=== PATIENT | female | born 1955 | race Caucasian/White ===

== ENCOUNTER 2017-11-16 04:55 | Inpatient (IN) | payer MEDICARE, OTHER ==
--- NOTE | 2017-11-16 06:28 | ED ---
Dizziness HPI - General Chief Complaint: Neuro Symptoms/Deficit Stated Complaint: Dizziness Time Seen by Provider: 11/16/17 05:06 Source: patient Mode of arrival: EMS Limitations: physical limitation - History of Present Illness Initial Comments: This patient is 62-year-old woman transferred here from [facility], where she had gone tonight after the acute onset of severe vertigo. The patient states she had gone to bed in her usual state of health and then woke up to use the bathroom. She states that when she got out of bed in a hurry, she developed intense dizziness. Further questioning reveals that his vertigo sensation, she feels like her body is moving out of control and she is not able stop unless she lies extremely still. She has not found other relieving symptoms. It is worsened with movement. MD Complaint: dizziness, difficulty walking -: hour(s) Timing: sudden onset Description: sense of movement, difficulty walking History of Same: No History of Trauma: No Severity: severe Improves With: remaining still Worsens With: movement Associated Symptoms: denies other symptoms - Related Data Allergies Allergy/AdvReac Type Severity Reaction Status Date / Time cefaclor [From Ceclor] Allergy Rash/Hives Verified 11/16/17 05:03 sulfamethoxazole Allergy Rash/Hives Verified 11/16/17 05:03 [From Bactrim] trimethoprim [From Bactrim] Allergy Rash/Hives Verified 11/16/17 05:03 epinephrine AdvReac Rapid Verified 11/16/17 05:03 Heart Rate Review of Systems ROS Statement: Those systems with pertinent positive or pertinent negative responses have been documented in the HPI. ROS Other: All systems not noted in ROS Statement are negative. Constitutional: Denies: fever, chills, weakness Eyes: Denies: vision change Respiratory: Denies: cough, dyspnea Cardiovascular: Denies: chest pain, palpitations, edema, syncope Gastrointestinal: Reports: nausea, vomiting. Denies: abdominal pain Genitourinary: Denies: dysuria, hematuria Musculoskeletal: Denies: back pain Skin: Denies: rash Neurological: Reports: vertigo. Denies: headache, weakness, numbness Past Medical History Past Medical History: COPD, Hyperlipidemia, Hypertension History of Any Multi-Drug Resistant Organisms: None Reported Past Surgical History: Adenoidectomy, Appendectomy, Ear Surgery, Hysterectomy, Tonsillectomy Past Psychological History: Anxiety, Panic Disorder Smoking Status: Former smoker Past Alcohol Use History: None Reported Past Drug Use History: None Reported General Exam Limitations: physical limitation General appearance: alert, in no apparent distress, obese Head exam: Present: atraumatic, normocephalic Eye exam: Present: normal appearance, nystagmus. Absent: scleral icterus, conjunctival injection ENT exam: Present: normal oropharynx Neck exam: Present: normal inspection, full ROM Respiratory exam: Present: normal lung sounds bilaterally. Absent: respiratory distress, wheezes, rales, rhonchi, stridor Cardiovascular Exam: Present: regular rate, normal rhythm, normal heart sounds. Absent: systolic murmur, diastolic murmur, rubs, gallop GI/Abdominal exam: Present: soft. Absent: distended, tenderness, guarding, rebound, mass Extremities exam: Present: normal inspection, normal capillary refill. Absent: pedal edema, calf tenderness Neurological exam: Present: alert, oriented X3, CN II-XII intact. Absent: motor sensory deficit Skin exam: Present: warm, dry, intact, normal color. Absent: rash Course Vital Signs 11/16/17 11/16/17 04:59 05:49 Temperature 99.3 F Pulse Rate 97 84 Respiratory 19 18 Rate Blood Pressure 172/74 136/68 O2 Sat by Pulse 93 L 96 Oximetry EKG Findings - EKG Results: EKG: interpreted by ERMD, sinus rhythm (With PACs, rate approximately 84 bpm), normal axis, normal QRS, normal ST/T Disposition Clinical Impression: Vertigo Disposition: ADMITTED IP TO THIS HOSP Condition: Fair Is patient prescribed a controlled substance at d/c from ED?: No Referrals: Jose Sheikh MD [Primary Care Provider] - 1-2 days
[2017-11-16] MEDS: MECLIZINE 12.5 MG TAB PO SCH ×4 (06:50→23:40)
[2017-11-16] MEDS: SODIUM CHLORIDE 0.9% 1,000 ML IV SCH (06:51)
[2017-11-16 08:11] VITALS: BMI 46.5
[2017-11-16] MEDS: DOCUSATE 100 MG CAP PO SCH ×3 (12:15→23:40)
[2017-11-16] MEDS: FAMOTIDINE 20 MG TAB PO SCH ×2 (12:15→20:08)
[2017-11-16] MEDS ORDERED: IPRATROPIUM-ALBUTEROL 3 ML NEB INHALATION PRN (14:43)
--- NOTE | 2017-11-16 14:46 | P.HPIM ---
History of Present Illness H&P Date: 11/16/17 Chief Complaint: Dizziness Patient is a 60-year-old male with a known history of COPD-recently started on home oxygen, hypertension, hyperlipidemia and borderline diabetes was initially presented to [facility] with complaints of dizziness and vertigo since yesterday. Patient says that all the symptoms started when she is woke up to use the bathroom. She was having severe dizziness especially when she tries to get up and moves her head. Patient is unable to walk steadily. Patient presented to ER for further evaluation. CT head at [facility] was negative as per patient. Patient was transferred to [facility] for evaluation by neurology. Otherwise patient denied any chest pain or shortness of breath. Patient does have some nausea. No vomiting. No headache. No chest pain or shortness of breath no fever no chills. No nausea vomiting or abdominal pain. No recent cough or sputum production no recent illnesses or sick contacts. Laboratory data from [facility] was reviewed. Review of Systems Constitutional: Patient denies any fever or chills . No generalized weakness or weight loss. Abdomen: Patient denied nausea vomiting and diarrhea and abdominal pain. Cardiovascular: Patient denies any chest pain or short of breath no palpitations. Respiratory: patient denied any cough is from production. No shortness of breath Neurologic: Patient denied any numbness or tingling headache. Patient does have dizziness Musculoskeletal: Patient denies any complaints of joint swelling or deformity. Skin: Negative Psychiatric: Negative Endocrine: No heat or cold intolerance. No recent weight gain. Genitourinary: No dysuria or hematuria. All other 14 point ROS negative except the above Past Medical History Past Medical History: COPD, Hyperlipidemia, Hypertension Additional Past Medical History / Comment(s): boarder line diabetic History of Any Multi-Drug Resistant Organisms: None Reported Past Surgical History: Adenoidectomy, Appendectomy, Ear Surgery, Hysterectomy, Tonsillectomy Past Psychological History: Anxiety, Panic Disorder Smoking Status: Former smoker Past Alcohol Use History: None Reported Past Drug Use History: None Reported Medications and Allergies Home Medications Medication Instructions Recorded Confirmed Type Aspirin EC [Ecotrin Low Dose] 81 mg PO DAILY 11/16/17 11/16/17 History Cholecalciferol [Vitamin D3] 5,000 unit PO DAILY 11/16/17 11/16/17 History LORazepam [Ativan] 0.5 mg PO QAM 11/16/17 11/16/17 History Lisinopril 30 mg PO DAILY 11/16/17 11/16/17 History Simvastatin 40 mg PO HS 11/16/17 11/16/17 History Venlafaxine HCl ER [Effexor Xr] 150 mg PO DAILY 11/16/17 11/16/17 History busPIRone HCl [Buspar] 5 mg PO TID 11/16/17 11/16/17 History Allergies Allergy/AdvReac Type Severity Reaction Status Date / Time cefaclor [From Ceclor] Allergy Rash/Hives Verified 11/16/17 06:44 sulfamethoxazole Allergy Rash/Hives Verified 11/16/17 06:44 [From Bactrim] trimethoprim [From Bactrim] Allergy Rash/Hives Verified 11/16/17 06:44 epinephrine AdvReac Rapid Verified 11/16/17 06:44 Heart Rate Physical Exam Vitals: Vital Signs Temp Pulse Pulse Resp BP BP Pulse Ox 11/16/17 12:00 70 16 11/16/17 11:31 98.2 F 70 16 92/51 96 11/16/17 08:00 72 16 11/16/17 07:30 98.1 F 72 16 118/73 100 11/16/17 06:52 97.4 F L 85 18 139/84 98 11/16/17 05:49 84 18 136/68 96 11/16/17 04:59 99.3 F 97 19 172/74 93 L Intake and Output 11/15/17 11/16/17 11/16/17 22:59 06:59 14:59 Intake Total 240 Balance 240 Intake: Oral 240 Other: Voiding Method Toilet Weight 98.883 kg 97.5 kg PHYSICAL EXAMINATION: Patient is lying in the bed comfortably, no acute distress, awake alert and oriented.. HEENT: Normocephalic. Neck is supple. Pupils reactive. Nostrils clear. Oral cavity is moist. Ears reveal no drainage. Neck reveals no JVD, carotid bruits, or thyromegaly. CHEST EXAMINATION: Trachea is central. Symmetrical expansion. Mild expiratory wheezing. Otherwise Lung haley clear to auscultation and percussion. CARDIAC: Normal S1, S2 with no gallops. No murmurs ABDOMEN: Soft. Bowel sounds normal. No organomegaly. No abdominal bruits. Extremities: reveal no edema. No clubbing or cyanosis Neurologically awake, alert, oriented x3 with well-coordinated movements. No focal deficits noted Skin: No rash or skin lesions. Psychiatric: Coperative. Nonsuicidal Musculoskeletal: No joint swelling or deformity. Normal range of motion. Thrombosis Risk Factor Assmnt - DVT/VTE Prophylaxis DVT/VTE Prophylaxis: Pharmacologic Prophylaxis ordered - Choose All That Apply Any of the Below Risk Factors Present?: Yes Each Factor Represents 1 point: Obesity (BMI >25) Other Risk Factors: Yes Each Risk Factor Represents 2 Points: Age 61-74 years Thrombosis Risk Factor Assessment Total Risk Factor Score: 3 Thrombosis Risk Factor Assessment Level: Moderate Risk Assessment and Plan Assessment: Dizziness likely due to benign positional vertigo COPD on home oxygen Hypertension Borderline diabetes Hyperlipidemia Morbid obesity BMI of 46.5 Anxiety and panic disorder History of smoking DVT prophylaxis with heparin subcu Plan: Patient be continued on meclizine when necessary. Neurology was consulted. We will continue the patient it is new and home medications will be started. Continue to follow closely. Further recommendations based on the clinical course. Time with Patient: Greater than 30
[2017-11-16] MEDS: HEPARIN SODIUM,PORCINE 5,000 UNIT/ML 1 ML VIAL SQ SCH ×2 (16:31→23:40)
[2017-11-16] MEDS: busPIRone HCl 5 MG TAB PO SCH ×2 (16:31→20:07)
[2017-11-16] MEDS ORDERED: ACETAMINOPHEN TAB 325 MG TAB PO PRN (20:03)
[2017-11-16] MEDS: ATORVASTATIN 20 MG TAB PO SCH (20:08)
--- NOTE | 2017-11-16 20:58 | P.CNNES ---
History of Present Illness Consult date: 11/16/17 History of Present Illness: The patient is a 62-year-old woman transferred from [facility] to [facility] with vertigo. The patient reports that she got up at 10 PM night from bed suddenly and developed vertigo. She began stumbling. She states she felt as if she was spinning. There is no visual changes. She has nausea but no vomiting. She reports that the vertigo is worse if she turns to the left. So the vertigo is brought on by standing or sitting and relieved by laying flat. She has balance disturbance chronically. She had this type of vertigo years ago. He has a history of pituitary tumor diagnosed 12-15 years ago. She sees a neurologist, Dr. BOLANOS, and she had MRI done last year. Also she had a CAT scan of the brain earlier this year which showed no change compared to recent CT of the brain done in the emergency room at [facility]. has not seen a neurosurgeon for several years. She was told to manage without surgery unless she becomes symptomatic. The patient denies any focal weakness numbness or visual changes. The patient lives alone and she states that the balance has been poor for over 3 months and she to the point where she stopped driving. Review of Systems Constitutional: Denies chills, Denies fever Eyes: denies blurred vision, denies pain Ears, nose, mouth and throat: Reports as per HPI Cardiovascular: Denies chest pain, Denies shortness of breath Respiratory: Denies cough Musculoskeletal: Reports as per HPI Neurological: Denies numbness, Denies weakness Psychiatric: Denies anxiety, Denies depression Past Medical History Past Medical History: COPD, Hyperlipidemia, Hypertension Additional Past Medical History / Comment(s): boarder line diabetic History of Any Multi-Drug Resistant Organisms: None Reported Past Surgical History: Adenoidectomy, Appendectomy, Ear Surgery, Hysterectomy, Tonsillectomy Past Psychological History: Anxiety, Panic Disorder Smoking Status: Former smoker Past Alcohol Use History: None Reported Past Drug Use History: None Reported Medications and Allergies Home Medications Medication Instructions Recorded Confirmed Type Aspirin EC [Ecotrin Low Dose] 81 mg PO DAILY 11/16/17 11/16/17 History Cholecalciferol [Vitamin D3] 5,000 unit PO DAILY 11/16/17 11/16/17 History LORazepam [Ativan] 0.5 mg PO QAM 11/16/17 11/16/17 History Lisinopril 30 mg PO DAILY 11/16/17 11/16/17 History Simvastatin 40 mg PO HS 11/16/17 11/16/17 History Venlafaxine HCl ER [Effexor Xr] 150 mg PO DAILY 11/16/17 11/16/17 History busPIRone HCl [Buspar] 5 mg PO TID 11/16/17 11/16/17 History Allergies Allergy/AdvReac Type Severity Reaction Status Date / Time cefaclor [From Ceclor] Allergy Rash/Hives Verified 11/16/17 06:44 sulfamethoxazole Allergy Rash/Hives Verified 11/16/17 06:44 [From Bactrim] trimethoprim [From Bactrim] Allergy Rash/Hives Verified 11/16/17 06:44 epinephrine AdvReac Rapid Verified 11/16/17 06:44 Heart Rate Physical Examination - Vital Signs Vital Signs: Vital Signs Temp Pulse Pulse Resp BP BP BP 11/16/17 20:00 16 11/16/17 19:05 98.3 F 82 16 11/16/17 16:00 98.1 F 75 16 118/72 116/73 11/16/17 15:56 70 16 11/16/17 12:00 70 16 11/16/17 11:31 98.2 F 70 16 11/16/17 08:00 72 16 11/16/17 07:30 98.1 F 72 16 11/16/17 06:52 97.4 F L 85 18 139/84 11/16/17 05:49 84 18 136/68 11/16/17 04:59 99.3 F 97 19 172/74 BP BP Pulse Ox 11/16/17 20:00 11/16/17 19:05 109/64 99 11/16/17 16:00 124/79 99 11/16/17 15:56 11/16/17 12:00 11/16/17 11:31 92/51 96 11/16/17 08:00 11/16/17 07:30 118/73 100 11/16/17 06:52 98 11/16/17 05:49 96 11/16/17 04:59 93 L Intake and Output 09/07/18 09/07/18 09/07/18 06:59 14:59 22:59 Intake Total 240 Balance 240 Intake: Oral 240 Other: Voiding Method Toilet Toilet # Voids 1 Weight 98.883 kg 97.5 kg - Constitutional General appearance: cooperative, obese - EENT EENT: PERRL, hearing intact, vision intact - Respiratory Respiratory: lungs clear - Cardiovascular Cardiovascular: regular rate, normal S1, normal S2 - Integumentary Integumentary: normal - Neurologic Neurologic examination mental status: Patient is awake alert and oriented. There was no a aphasia or dysarthria. Cranial nerve examination: PERRL, EOMI, VFF, V1/V2/V3 grossly intact, face symmetric, tongue midline Speech examination: intact Sensorimotor examination: intact Detailed motor examination: grossly full strength in all extremities Reflexes: 2+: knee - Psychiatric Psychiatric: mood/affect appropriate Assessment and Plan (1) Vertigo Current Visit: Yes Status: Acute SNOMED Code(s): 729664648 (2) History of pituitary tumor Current Visit: Yes Status: Acute SNOMED Code(s): 18152458451564 Plan: The patient is a 62-year-old woman with history of chronic problems with balance and recent exacerbation with acute vertigo beginning yesterday. He also has a history of pituitary tumor. Patient presented to the hospital at [facility] with severe vertigo. His vertigo is positional and associated with nausea. Her neurologic examination is nonfocal. The patient has a known pituitary tumor and CAT scan of the brain yesterday showed no change compared to CAT scan done in June 2017. Further evaluation is recommended with MRI of the brain. Also recommend MRA of the neck. Continue aspirin area and also recommend echocardiogram
[2017-11-17] MEDS: MECLIZINE 12.5 MG TAB PO SCH ×4 (06:24→23:15)
[2017-11-17] MEDS: SODIUM CHLORIDE 0.9% 1,000 ML IV SCH (06:24)
[2017-11-17 06:45] LABS: Cholesterol 132 mg/dL (<200); HDL Cholesterol 45 mg/dL (40-60); LDL Cholesterol,Calculated 69 mg/dL (0-99); Triglycerides 88 mg/dL (<150)
[2017-11-17] MEDS: FAMOTIDINE 20 MG TAB PO SCH ×2 (09:22→20:31)
[2017-11-17] MEDS: CHOLECALCIFEROL 1,000 UNIT TAB PO SCH (09:22)
[2017-11-17] MEDS: HEPARIN SODIUM,PORCINE 5,000 UNIT/ML 1 ML VIAL SQ SCH ×3 (09:22→23:15)
[2017-11-17] MEDS: busPIRone HCl 5 MG TAB PO SCH ×3 (09:22→20:31)
[2017-11-17] MEDS: ASPIRIN 81 MG PO SCH (09:22)
[2017-11-17] MEDS: DOCUSATE 100 MG CAP PO SCH ×3 (09:22→23:15)
[2017-11-17] MEDS: VENLAFAXINE HCL ER 150 MG CAP PO SCH (09:24)
--- NOTE | 2017-11-17 12:53 | ECHOF ---
Referral Reason:Vertigo MEASUREMENTS -------- HEIGHT: 149.9 cm WEIGHT: 97.1 kg BP: RVIDd: 2.2 cm (< 3.3) IVSd: 1.0 cm (0.6 - 1.1) LVIDd: 3.6 cm (3.9 - 5.3) LVPWd: 1.6 cm (0.6 - 1.1) IVSs: 1.8 cm LVIDs: 1.6 cm LVPWs: 1.6 cm Ao Diam: 3.1 cm (2.0 - 3.7) AV Cusp: 1.7 cm (1.5 - 2.6) LA Diam: 2.9 cm (2.7 - 3.8) MV EXCURSION: 13.666 mm (> 18.000) MV EF SLOPE: 107 mm/s (70 - 150) EPSS: 0.5 cm MV E Felipe: 0.69 m/s MV DecT: 272 ms MV A Felipe: 0.64 m/s MV E/A Ratio: 1.08 AR PHT: 412 ms RAP: 5.00 mmHg RVSP: 13.19 mmHg FINDINGS -------- Sinus rhythm. This was a technically difficult study with suboptimal views. The left ventricular size is normal. There is mild concentric left ventricular hypertrophy. Overa ll left ventricular systolic function is normal with, an EF between 55 - 60 %. The right ventricle is normal in size and function. The left atrium is normal in size. The right atrium is normal in size. The aortic valve is trileaflet and appears structurally normal. There is mild aortic regurgitation. The mitral valve leaflets are mildly thickened. There is trace to mild mitral regurgitation. Trace tricuspid regurgitation present. The right ventricular systolic pressure, as measured by Dopp ler, is 13.19mmHg. Pulmonic valve appears structurally normal. The aortic root size is normal. The pericardium is normal. CONCLUSIONS -------- 1. Sinus rhythm. 2. This was a technically difficult study with suboptimal views. 3. The left ventricular size is normal. 4. There is mild concentric left ventricular hypertrophy. 5. Overall left ventricular systolic function is normal with, an EF between 55 - 60 %. 6. The right ventricle is normal in size and function. 7. The left atrium is normal in size. 8. The right atrium is normal in size. 9. The aortic valve is trileaflet and appears structurally normal. 10. There is mild aortic regurgitation. 11. The mitral valve leaflets are mildly thickened. 12. There is trace to mild mitral regurgitation. 13. Trace tricuspid regurgitation present. 14. The right ventricular systolic pressure, as measured by Doppler, is 13.19mmHg. 15. Pulmonic valve appears structurally normal. 16. The aortic root size is normal. 17. The pericardium is normal. COLLAR POINTER: Carrie Wray RDCS
[2017-11-17 15:25] LABS: Basophils % (A) 1 %; Eosinophils # (A) 0.1 k/uL (0-0.7); Eosinophils % (A) 2 %; HCT 43.1 % (34.0-46.0); HGB 13.4 gm/dL (11.4-16.0); Hypochromasia Moderate; Lymphocytes # (A) 1.9 k/uL (1.0-4.8); Lymphocytes % (A) 27 %; MCH 31.4 pg (25.0-35.0); MCHC 31.2 g/dL (31.0-37.0); MCV 100.8 fL (80.0-100.0); Macrocytosis Slight; Mean Platelet Volume 7.5; Monocytes # (A) 0.5 k/uL (0-1.0); Monocytes % (A) 7 %; Neutrophils # (A) 4.3 k/uL (1.3-7.7); Neutrophils % (A) 62 %; Platelet Count 252 k/uL (150-450); RBC 4.28 m/uL (3.80-5.40); RDW 13.8 % (11.5-15.5)
[2017-11-17 15:28] LABS: Albumin 2.8 g/dL (3.5-5.0); Calcium 8.7 mg/dL (8.4-10.2); Potassium 4.4 mmol/L (3.5-5.1); Total Bilirubin 0.4 mg/dL (0.2-1.3); Total Protein 5.6 g/dL (6.3-8.2)
--- NOTE | 2017-11-17 15:57 | P.PN ---
Subjective Progress Note Date: 11/17/17 The patient is a 62-year-old woman who presented to the hospital with acute vertigo. She has a history of chronic vertigo but vertigo apparently got worse when she got up suddenly from bed on the day of admission. She states she continues to have vertigo if she sits up or stands. She is fine when she is lying down flat. She has a history of pituitary tumor. He had a CAT scan of the brain on admission which was unchanged compared to a previous CAT scan in June which showed a pituitary tumor. She is scheduled to have an MRI today. She has no other complaints such as visual changes or focal weakness or numbness. Objective - Vital Signs Vital signs: Vital Signs Temp 98.4 F 11/17/17 12:00 Pulse 73 11/17/17 12:00 Resp 16 11/17/17 12:00 BP 107/66 11/17/17 12:00 Pulse Ox 99 11/17/17 12:00 Intake & Output 11/16/17 11/17/17 11/17/17 18:59 06:59 18:59 Intake Total 240 Balance 240 Weight 97.5 kg Intake: Oral 240 Other: Voiding Method Toilet Toilet Toilet # Voids 1 1 1 - Constitutional General appearance: Present: obese - EENT Eyes: Present: EOMI, PERRLA ENT: Present: hearing grossly normal - Respiratory Respiratory: bilateral: CTA - Cardiovascular Rhythm: regular - Neurologic Neurologic Comment(s): Neurologic examination: Mental status: The patient was awake alert and oriented. There is no a aphasia or dysarthria. Neurologic: Present: CNII-XII intact - Musculoskeletal Musculoskeletal: Present: strength equal bilaterally - Labs CBC & Chem 7: 11/17/17 06:08 11/17/17 06:08 Labs: Abnormal Lab Results - Last 24 Hours (Table) 11/17/17 11/17/17 Range/Units 06:08 06:08 MCV 100.8 H (80.0-100.0) fL Carbon Dioxide 33 H (22-30) mmol/L BUN 24 H (7-17) mg/dL Glucose 109 H (74-99) mg/dL Total Protein 5.6 L (6.3-8.2) g/dL Albumin 2.8 L (3.5-5.0) g/dL Assessment and Plan (1) Vertigo Current Visit: Yes Status: Acute SNOMED Code(s): 011837407 (2) History of pituitary tumor Current Visit: Yes Status: Acute SNOMED Code(s): 11413309850201 Plan: The patient is a 62-year-old woman with history of chronic problems with balance and recent exacerbation with acute vertigo beginning yesterday. He also has a history of pituitary tumor. Patient presented to the hospital at [place] with severe vertigo. She she is scheduled for an MRI of the brain today which is pending. Commend continue aspirin daily and Antivert when necessary and if dizziness continues recommend ENT evaluation.
[2017-11-17 17:49] LABS: Appearance,Urine Cloudy (Clear); Bacteria,Urine Few /hpf; Bilirubin,Urine Negative (Negative); Blood,Urine Negative (Negative); Color,Urine Yellow; Glucose,Urine (UA) Trace (Negative); Ketones,Urine Negative (Negative); Leukocyte Esterase,Urine Negative (Negative); Mucus,Urine Rare /hpf; Nitrite,Urine Negative (Negative); Protein,Urine Trace (Negative); RBC,Urine 1 /hpf (0-5); Specific Gravity,Urine 1.031 (1.001-1.035); Squamous Epithelial Cell,Urine 6 /hpf (0-4); Urobilinogen,Urine <2.0 mg/dL (<2.0); WBC,Urine 4 /hpf (0-5)
--- NOTE | 2017-11-17 20:23 | PN ---
PROGRESS NOTE DATE OF SERVICE: 11/17/2017 This 62-year-old woman who was admitted with dizziness is being closely monitored. At this time MRI has been ordered by neurology. The patient also has COPD. The patient is still complaining of dizziness and a 2D echo with Doppler was read by cardiology and showed ejection fraction about 50-60%. There is no history of fever, rigors or chills. PHYSICAL EXAM: Alert and oriented x3. The pulse is 73, blood pressure 107/63, respirations 16, temperature 98.4, pulse ox 98% on 2 L. HEENT: Conjunctivae normal. Oral mucosa moist. NECK: No jugular venous distention. No lymph nodes. CARDIOVASCULAR: S1, S2 muffled. RESPIRATORY: Diminished breath sounds at the bases. No rhonchi. No crackles. ABDOMEN: Soft, nontender. No mass palpable. LEGS: No edema, no swelling. NERVOUS SYSTEM: Higher functions as mentioned. No focal deficits. LYMPHATICS: No lymph nodes in neck or axilla. SKIN: No ulcer, rash or bleeding. NERVOUS SYSTEM: Mild diffuse weakness. LABS: Triglycerides are within normal limits. ASSESSMENT: 1. Dizziness, possibly benign positional vertigo, rule out transient ischemic attack or stroke. 2. COPD on home O2. 3. Hypertension. 4. Borderline diabetes type 2. 5. Hyperlipidemia. 6. Morbid obesity, BMI of 46.5. 7. Anxiety and panic disorder. 8. History of smoking. RECOMMENDATIONS AND DISCUSSION: Recommend to continue current medication, monitor and symptomatic treatment. Otherwise at this time, I recommend MRI, repeat labs, neurology consultation, neurovascular evaluation. Also recommend PT OT evaluation. Prognosis guarded. Further recommendations. MMODL / IJN: [id number] /
[2017-11-17] MEDS: ATORVASTATIN 20 MG TAB PO SCH (20:31)
[2017-11-18] MEDS: SODIUM CHLORIDE 0.9% 1,000 ML IV SCH (06:00)
[2017-11-18] MEDS: MECLIZINE 12.5 MG TAB PO SCH ×4 (06:01→23:33)
--- NOTE | 2017-11-18 06:46 | MR ---
EXAMINATION TYPE: MR brain wo/w mra neck wo/wcon DATE OF EXAM: 11/17/2017 COMPARISON: Yes CT scan from [facility] dated 11/16/2017. HISTORY: Vertigo TECHNIQUE: Multiplanar, multisequence images of the brain and brainstem is performed without and with IV contras t, utilizing 10 mL intravenous Gadavist . FINDINGS: There is a 13.2 x 14.2 x 12.6 mm pituitary tumor impinging upon the optic chiasm. Midline s tructures are otherwise unremarkable. There is a normal craniocervical junction. Echoplanar diffusion imaging shows minor restricted diffusion in the region of the pituitary mass but no evidence of acute ischemia. The orbits are unremarkable. There is no evidence of a CP angle mass lesion. There is increased signal in the mastoid air cells bilaterally. This made represent some degree of ma stoiditis. Motion artifact degrades the FLAIR axial images. No definite focal lesion is seen. Following intravenous administration of gadolinium, there is no significant enhancement of the pituit kelsea lesion. This lesion is high on T1 and low on T2. This may represent a pituitary macroadenoma but more enhancement would be expected. Metastatic disease would be a possibility. There is no midline shift or intracranial blood. There is a normal origin of the great vessels. Vertebral arteries are codominant. There is no signifi cant narrowing in either internal or common carotid artery. There is slight narrowing at the origin o f the left external carotid. IMPRESSION: 1. LARGE PITUITARY TUMOR IMPINGING UPON THE OPTIC CHIASM. 2. NO SIGNIFICANT CAROTID STENOSIS. 3. FINDINGS CONSISTENT WITH MILD, CHRONIC MASTOID DISEASE.
[2017-11-18 07:29] LABS: Basophils % (A) 1 %; Eosinophils # (A) 0.1 k/uL (0-0.7); Eosinophils % (A) 2 %; HCT 40.4 % (34.0-46.0); HGB 12.8 gm/dL (11.4-16.0); Lymphocytes # (A) 2.2 k/uL (1.0-4.8); Lymphocytes % (A) 30 %; MCH 30.9 pg (25.0-35.0); MCHC 31.6 g/dL (31.0-37.0); MCV 97.9 fL (80.0-100.0); Mean Platelet Volume 6.3; Monocytes # (A) 0.4 k/uL (0-1.0); Monocytes % (A) 6 %; Neutrophils # (A) 4.4 k/uL (1.3-7.7); Neutrophils % (A) 59 %; Platelet Count 244 k/uL (150-450); RBC 4.13 m/uL (3.80-5.40); RDW 13.4 % (11.5-15.5); WBC 7.3 k/uL (3.8-10.6)
[2017-11-18 07:51] LABS: Anion Gap 4 mmol/L; Blood Urea Nitrogen 18 mg/dL (7-17); Calcium 8.8 mg/dL (8.4-10.2); Carbon Dioxide 33 mmol/L (22-30); Chloride 106 mmol/L (98-107); Glucose 102 mg/dL (74-99); Potassium 4.2 mmol/L (3.5-5.1); Sodium 143 mmol/L (137-145)
[2017-11-18] MEDS: DOCUSATE 100 MG CAP PO SCH ×3 (08:21→23:33)
[2017-11-18] MEDS: ASPIRIN 81 MG PO SCH (08:22)
[2017-11-18] MEDS: HEPARIN SODIUM,PORCINE 5,000 UNIT/ML 1 ML VIAL SQ SCH ×3 (08:22→23:32)
[2017-11-18] MEDS: FAMOTIDINE 20 MG TAB PO SCH ×2 (08:22→20:45)
[2017-11-18] MEDS: LISINOPRIL 10 MG TAB PO SCH (08:22)
[2017-11-18] MEDS: busPIRone HCl 5 MG TAB PO SCH ×3 (08:22→20:45)
[2017-11-18] MEDS: CHOLECALCIFEROL 1,000 UNIT TAB PO SCH (08:22)
[2017-11-18] MEDS: VENLAFAXINE HCL ER 150 MG CAP PO SCH (08:43)
--- NOTE | 2017-11-18 19:59 | P.PN ---
Subjective Progress Note Date: 11/18/17 The patient is a 62-year-old woman who presented to the hospital with acute vertigo. She has a history of chronic vertigo but vertigo apparently got worse when she got up suddenly from bed on the day of admission. The patient continues to experience dizziness. She describes it as a spinning sensation with associated nausea. She is able to eat and there is no vomiting. She is unable to ambulate due to the dizziness. His been only slight improvement with Antivert. Patient has a long-standing history of pituitary tumor. He has not seen a neurosurgeon for several years. Does follow with a neurologist who is monitoring her CAT scans and she has had a CAT scan in June of this year which showed the tumor unchanged from CAT scan done on admission. She had an MRI yesterday which showed the pituitary tumor. There was no evidence of a CP angle mass. It was felt that it could be macroadenoma. Metastatic disease was also placed in the differential. The patient denies any other associated symptoms with the dizziness such as headache or visual changes. Objective - Vital Signs Vital signs: Vital Signs Temp 98.6 F 11/18/17 19:39 Pulse 67 11/18/17 19:39 Resp 16 11/18/17 19:39 BP 135/74 11/18/17 19:39 Pulse Ox 96 11/18/17 19:39 Intake & Output 11/18/17 11/18/17 11/19/17 06:59 18:59 06:59 Output Total 1 Balance -1 Output: Urine 1 Other: Voiding Method Toilet Toilet # Voids 1 # Bowel Movements 1 - Constitutional General appearance: Present: obese - EENT Eyes: Present: EOMI, PERRLA ENT: Present: hearing grossly normal - Respiratory Respiratory: bilateral: CTA - Cardiovascular Rhythm: regular - Neurologic Neurologic Comment(s): Neurologic examination: Mental status she was awake alert and oriented. She answered questions appropriately. There was no a aphasia or dysarthria. Neurologic: Present: CNII-XII intact - Musculoskeletal Musculoskeletal: Present: strength equal bilaterally - Psychiatric Psychiatric: Present: A&O x's 3 - Labs CBC & Chem 7: 11/18/17 06:59 11/18/17 06:59 Labs: Abnormal Lab Results - Last 24 Hours (Table) 11/18/17 Range/Units 06:59 Carbon Dioxide 33 H (22-30) mmol/L BUN 18 H (7-17) mg/dL Glucose 102 H (74-99) mg/dL Assessment and Plan (1) Vertigo Current Visit: Yes Status: Acute SNOMED Code(s): 928687900 (2) History of pituitary tumor Current Visit: Yes Status: Acute SNOMED Code(s): 62219729280879 Plan: The patient is a 62-year-old woman with history of chronic problems with balance and recent exacerbation with acute vertigo . She also has a history of pituitary tumor. Her dizziness continues and she is unable to ambulate much due to dizziness. She denied headache or visual changes or focal weakness or numbness. Recommend endocrinology consult to rule out hormonal disturbances causing her chronic vertigo. Also recommend neurosurgical evaluation. If dizziness does not improve this may require transfer to tertiary center.
[2017-11-18] MEDS ORDERED: PROCHLORPERAZINE 5 MG TAB PO PRN (20:35)
[2017-11-18] MEDS: ATORVASTATIN 20 MG TAB PO SCH (20:45)
--- NOTE | 2017-11-18 21:37 | PN ---
PROGRESS NOTE DATE OF SERVICE: 11/18/2017 INTERVAL HISTORY: This 62-year-old woman was admitted with dizziness. She also had MRI scan. MRI showed large pituitary tumor with some . The comparison of the previous tumor is unknown at this time. Neurology following the patient closely. The patient still has some gait dysfunction. No chest pain, no palpitation. EXAM: Alert and oriented x3. Pulse 73, blood pressure 125/70, respiration 16, temperature 98.4, pulse ox 99% on 2 L. HEENT: Conjunctivae normal. NECK: No JVD. CARDIOVASCULAR: S1, S2. RESPIRATORY: Diminished breath sounds at the bases. NO rhonchi, no crackles. ABDOMEN: Soft, nontender. NERVOUS SYSTEM: Mild diffuse weakness. Gait dysfunction present. LABS: Noted. ASSESSMENT: 1. Dizziness, possibly benign positional vertigo, rule out transient ischemic attack, rule out pituitary tumor extension. 2. Chronic obstructive pulmonary disease on home O2. 3. Hypertension. 4. Borderline diabetes mellitus type 2. 5. Hyperlipidemia. 6. Morbid obesity. 7. History of anxiety, panic disorder. 8. History of smoking. RECOMMENDATIONS: Recommend to continue current medications, continue symptomatic treatment. Otherwise, closely follow with Neurology. Guarded prognosis because of multiple complex medical issues and further recommendations to follow. We will obtain the old records. MMODL / IJN: [id number] / NICHOLAS
[2017-11-19] MEDS: SODIUM CHLORIDE 0.9% 1,000 ML IV SCH (06:38)
[2017-11-19] MEDS: MECLIZINE 12.5 MG TAB PO SCH ×4 (06:50→23:41)
[2017-11-19 07:39] LABS: Basophils % (A) 1 %; Eosinophils # (A) 0.1 k/uL (0-0.7); Eosinophils % (A) 2 %; HCT 41.3 % (34.0-46.0); HGB 13.2 gm/dL (11.4-16.0); Lymphocytes % (A) 26 %; MCH 31.4 pg (25.0-35.0); MCHC 31.9 g/dL (31.0-37.0); MCV 98.3 fL (80.0-100.0); Mean Platelet Volume 6.4; Monocytes # (A) 0.5 k/uL (0-1.0); Monocytes % (A) 7 %; Neutrophils # (A) 4.9 k/uL (1.3-7.7); Neutrophils % (A) 64 %; Platelet Count 251 k/uL (150-450); RBC 4.21 m/uL (3.80-5.40); RDW 13.7 % (11.5-15.5); WBC 7.7 k/uL (3.8-10.6)
[2017-11-19 07:54] LABS: Anion Gap 4 mmol/L; Blood Urea Nitrogen 15 mg/dL (7-17); Calcium 8.7 mg/dL (8.4-10.2); Carbon Dioxide 36 mmol/L (22-30); Chloride 102 mmol/L (98-107); Glucose 92 mg/dL (74-99); Potassium 4.3 mmol/L (3.5-5.1); Sodium 142 mmol/L (137-145)
[2017-11-19] MEDS: busPIRone HCl 5 MG TAB PO SCH ×3 (08:51→20:03)
[2017-11-19] MEDS: HEPARIN SODIUM,PORCINE 5,000 UNIT/ML 1 ML VIAL SQ SCH ×3 (08:51→23:41)
[2017-11-19] MEDS: CHOLECALCIFEROL 1,000 UNIT TAB PO SCH (08:51)
[2017-11-19] MEDS: ASPIRIN 81 MG PO SCH (08:51)
[2017-11-19] MEDS: DOCUSATE 100 MG CAP PO SCH ×3 (08:51→23:44)
[2017-11-19] MEDS: FAMOTIDINE 20 MG TAB PO SCH ×2 (08:51→20:03)
[2017-11-19] MEDS: LISINOPRIL 10 MG TAB PO SCH (08:52)
[2017-11-19] MEDS: VENLAFAXINE HCL ER 150 MG CAP PO SCH (10:21)
--- NOTE | 2017-11-19 14:31 | CDI ---
Last Revision, February 2017 Documentation Clarification Form Date: 11/19/2017 2:21:24 PM From: Destinee Marroquin RN, CCDS Admit Date: 11/19/2017 10:50:00 AM Patient Name: Kate Lerner Visit Number: [id number] ATTENTION: The Clinical Documentation Specialists (CDI) and [facility] Coding Staff appreciate your assistance in clarifying documentation. Please respond to the clarification below the line at the bottom and electronically sign. The CDI & [facility] Coding staff will review the response and follow-up if needed. Please note: Queries are made part of the Legal Health Record. If you have any questions, please contact the author of this message via ITS. Pat Johnson MD History/Risk Factors: COPD, Hyperlipidemia, HTN, anxiety, panic disorder Tobacco use: former smoker Home oxygen: 2l NC Clinical Indicators: 11/16 H&P: "COPD with Home O2" Vital signs: temp 99.3, hr 97, RR 19, B/P 172/74, spo2 93% ra Pulse oximetry: per unit protocol 11/18 Attending: Lung/Breathing assessment:"Diminished breath sounds at the bases. NO rhonchi, no crackles." Treatment: Breathing TX: Duoneb QID PRN O2 @ 2L NC In your professional opinion, can you please clarify if these findings signify one of the following conditions? Chronic Respiratory Failure, further specify (if known): With hypercapnia? With hypoxia? Other Diagnosis, please specify Unable to determine Please continue to document in your progress notes and discharge summary in order to capture severity of illness and risk of mortality. Include clinical findings that support your diagnosis. chronic hypoxic respiratory failure MTDD
--- NOTE | 2017-11-19 15:35 | PN ---
PROGRESS NOTE DATE OF SERVICE: 11/19/2017 This 62-year-old woman was admitted with syncope and possible tia also had a pituitary tumor also. The most recent MRI of the brain showed a pituitary tumor of the size of 1.3 x 1.4 x 1.2 with some compression optic chiasm. Previous MRI report and films have been obtained for comparison purposes. Neurology following the patient closely. No chest pain. No palpitations. No fever. Patient complains of some dizziness and difficulty walking also. PHYSICAL EXAM: Alert and oriented x3. Pulse 72, pressure 105/69, respiration 16, temperature 97.9, pulse ox 98% on 2 L. HEENT is conjunctivae normal. Oral mucosa moist. Neck is no jugular venous distention. No carotid bruit. No lymph node enlargement. Cardiovascular: S1, S2 muffled. Respiratory: Breath sounds diminished in the bases. No rhonchi. No crackles. ABDOMEN: Soft, nontender. Legs: No edema. No swelling. NERVOUS SYSTEM: Cranial nerves normal. 2 thru 12 grossly intact. Moves all four extremities. No signs of cerebellar dysfunction. LABS: CBC within normal limits. Creatinine is normal. CBC and BMP noted. ASSESSMENT: 1. Dizziness, possibly bpv, rule out transient ischemic attack. 2. Pituitary tumor with some compression of the optic chiasm. 3. Chronic obstructive pulmonary disease on home O2 with chronic hypoxic respiratory failure. 4. Hypertension. 5. History of borderline diabetes type 2. 6. Hyperlipidemia. 7. Morbid obesity. 8. Anxiety, panic disorder. 9. History of smoking. RECOMMENDATIONS AND DISCUSSION: I recommend to continue current medications, management and symptomatic treatment. We will obtain the old records of the MRI and try to compare with the previous records. Follow closely with Neurology. The patient will need some neuropsych evaluation , which will be decided after complete neurology evaluation. Guarded prognosis. Further recommendations to follow. MMODL / IJN: [id number] / MTDD
[2017-11-19] MEDS: ATORVASTATIN 20 MG TAB PO SCH (20:04)
--- NOTE | 2017-11-20 00:27 | P.PN ---
Subjective Progress Note Date: 11/19/17 The patient is a 62-year-old woman who presented to the hospital with acute vertigo and pituitary tumor . She has a history of chronic vertigo but vertigo apparently got worse when she got up suddenly from bed on the day of admission. The patient continues to experience dizziness. She describes it as a spinning sensation with associated nausea. She states she is unable to let go of the walker because she feels like she is going to fall due to dizziness. She is able to eat and there is no vomiting. She is unable to ambulate due to the dizziness. Her dizziness is worse when she turns her head to the left. Patient has a long-standing history of pituitary tumor. She has not seen a neurosurgeon for several years. She had an MRI yesterday which showed the pituitary tumor. The patient denies any other associated symptoms with the dizziness such as headache or visual changes. She has not seen a neurosurgeon or lace roller in several years. Objective - Vital Signs Vital signs: Vital Signs Temp 98.3 F 11/19/17 20:00 Pulse 74 11/19/17 15:37 Resp 16 11/19/17 20:00 BP 116/66 11/19/17 20:00 Pulse Ox 99 11/19/17 20:00 Intake & Output 11/19/17 11/19/17 11/20/17 06:59 18:59 06:59 Intake Total 1160 Output Total 3 2 Balance -3 1158 Weight 97.5 kg Intake: Oral 1160 Output: Urine 3 2 Other: Voiding Method Toilet Toilet Toilet - Constitutional General appearance: Present: obese - EENT Eyes: Present: EOMI, PERRLA ENT: Present: hearing grossly normal - Respiratory Respiratory: bilateral: CTA - Cardiovascular Rhythm: regular - Neurologic Neurologic: Present: CNII-XII intact - Musculoskeletal Musculoskeletal: Present: strength equal bilaterally - Labs CBC & Chem 7: 11/19/17 06:27 11/19/17 06:27 Labs: Abnormal Lab Results - Last 24 Hours (Table) 11/19/17 Range/Units 06:27 Carbon Dioxide 36 H (22-30) mmol/L Assessment and Plan (1) Vertigo Current Visit: Yes Status: Acute SNOMED Code(s): 189935348 (2) History of pituitary tumor Current Visit: Yes Status: Acute SNOMED Code(s): 23867841374773 Plan: The patient is a 62-year-old woman with history of pituitary tumor resents to the hospital with vertigo. She has a nonfocal neurologic examination.. She has no other neurologic complaints besides vertigo. She denies any visual changes, headache, focal weakness or numbness. She did have an MRA of the neck which showed no significant vascular stenosis. This vertigo is positional. The patient has had no improvement in her symptoms. She is able to walk with the walker for short distance. According to nursing staff she did walk about 300 feet. She states that she is unable to let go of her walker when she does stand and walk due to loss of balance. Her dizziness is described as a vertigo which is worse when turning her head to the left. It is possible she has positional vertigo. Recommend ENT evaluation. Regarding her pituitary tumor. She should follow-up with neurosurgery regarding the tumor as well as follow-up with endocrinology.
[2017-11-20] MEDS: SODIUM CHLORIDE 0.9% 1,000 ML IV SCH (06:40)
[2017-11-20] MEDS: MECLIZINE 12.5 MG TAB PO SCH ×3 (06:40→17:21)
[2017-11-20] MEDS: DOCUSATE 100 MG CAP PO SCH ×2 (09:16→17:21)
[2017-11-20] MEDS: CHOLECALCIFEROL 1,000 UNIT TAB PO SCH (09:16)
[2017-11-20] MEDS: LISINOPRIL 10 MG TAB PO SCH (09:16)
[2017-11-20] MEDS: VENLAFAXINE HCL ER 150 MG CAP PO SCH (09:16)
[2017-11-20] MEDS: FAMOTIDINE 20 MG TAB PO SCH ×2 (09:16→21:39)
[2017-11-20] MEDS: HEPARIN SODIUM,PORCINE 5,000 UNIT/ML 1 ML VIAL SQ SCH ×2 (09:16→17:20)
[2017-11-20] MEDS: ASPIRIN 81 MG PO SCH (09:16)
[2017-11-20] MEDS: busPIRone HCl 5 MG TAB PO SCH ×2 (09:16→17:20)
[2017-11-20 09:21] LABS: Basophils % (A) 0 %; Eosinophils # (A) 0.2 k/uL (0-0.7); Eosinophils % (A) 2 %; HCT 44.5 % (34.0-46.0); HGB 13.7 gm/dL (11.4-16.0); Hypochromasia Slight; Lymphocytes # (A) 2.2 k/uL (1.0-4.8); Lymphocytes % (A) 27 %; MCH 31.2 pg (25.0-35.0); MCHC 30.9 g/dL (31.0-37.0); Macrocytosis Slight; Mean Platelet Volume 6.5; Monocytes # (A) 0.5 k/uL (0-1.0); Monocytes % (A) 7 %; Neutrophils # (A) 5.2 k/uL (1.3-7.7); Neutrophils % (A) 63 %; Platelet Count 233 k/uL (150-450); RBC 4.41 m/uL (3.80-5.40); RDW 13.7 % (11.5-15.5); WBC 8.3 k/uL (3.8-10.6)
[2017-11-20 09:58] LABS: Anion Gap 6 mmol/L; Carbon Dioxide 29 mmol/L (22-30); Chloride 106 mmol/L (98-107); Glucose 102 mg/dL (74-99); Sodium 141 mmol/L (137-145)
[2017-11-20 10:04] LABS: Potassium 4.9 mmol/L (3.5-5.1)
[2017-11-20 10:05] LABS: Blood Urea Nitrogen 15 mg/dL (7-17)
[2017-11-20] MEDS ORDERED: SCOPOLAMINE 1.5MG/72HR PATCH TRANSDERM ONE (16:02)
--- NOTE | 2017-11-20 16:10 | P.GSCN ---
History of Present Illness Consult date: 11/20/17 Reason for Consult: Dizziness Requesting physician: Gladys Burns History of present illness: This is a 62-year-old obese white female who presents to the hospital with 4 days of constant severe vertigo. She has had a neurologic consultation and underwent an MRI scan showing a pituitary tumor with pressure on the optic chiasm. Understands this pituitary tumor is unchanged over several years and she is being followed by Dr. Ocampo. Regarding her dizziness, she tells me that she's had some very mild intermittent dizziness for the last 32 years but never as bad as it has been since November 16. On November 16 she got up at 10 PM to go to the bathroom and became severely vertiginous. She describes this as true vertigo with the room spinning or her spinning. Neurologically she tells me that she's had some memory loss and anxiety etc. She denies any otologic symptoms other than slow and progressive hearing loss. She also suffers from hyper and hypoglycemia. She is not responding to meclizine therapy. Review of Systems - Constitutional Reports lethargy, Denies anorexia - EENT Ears, nose, mouth and throat: Denies bleeding gums - Cardiovascular Denies claudication - Respiratory Denies cough with sputum - Gastrointestinal Denies change in bowel habits - Genitourinary Genitourinary: Denies difficulty voiding - Musculoskeletal Denies fractures - Integumentary Denies change in hair/nails - Neurological Denies change in mentation - Psychiatric Reports anxiety attacks - Endocrine Denies cold intolerance - Allergic/Immunologic Denies allergic rhinitis Past Medical History Past Medical History: COPD, Hyperlipidemia, Hypertension Additional Past Medical History / Comment(s): boarder line diabetic History of Any Multi-Drug Resistant Organisms: None Reported Past Surgical History: Adenoidectomy, Appendectomy, Ear Surgery, Hysterectomy, Tonsillectomy Past Psychological History: Anxiety, Panic Disorder Smoking Status: Former smoker Past Alcohol Use History: None Reported Past Drug Use History: None Reported Medications and Allergies Home Medications Medication Instructions Recorded Confirmed Type Aspirin EC [Ecotrin Low Dose] 81 mg PO DAILY 11/16/17 11/16/17 History Cholecalciferol [Vitamin D3] 5,000 unit PO DAILY 11/16/17 11/16/17 History LORazepam [Ativan] 0.5 mg PO QAM 11/16/17 11/16/17 History Lisinopril 30 mg PO DAILY 11/16/17 11/16/17 History Simvastatin 40 mg PO HS 11/16/17 11/16/17 History Venlafaxine HCl ER [Effexor Xr] 150 mg PO DAILY 11/16/17 11/16/17 History busPIRone HCl [Buspar] 5 mg PO TID 11/16/17 11/16/17 History Allergies Allergy/AdvReac Type Severity Reaction Status Date / Time cefaclor [From Ceclor] Allergy Rash/Hives Verified 11/16/17 06:44 sulfamethoxazole Allergy Rash/Hives Verified 11/16/17 06:44 [From Bactrim] trimethoprim [From Bactrim] Allergy Rash/Hives Verified 11/16/17 06:44 epinephrine AdvReac Rapid Verified 11/16/17 06:44 Heart Rate Surgical - Exam Osteopathic Statement: *. No significant issues noted on an osteopathic structural exam other than those noted in the History and Physical/Consult. Vital Signs Temp Pulse Resp BP Pulse Ox 99.3 F 97 19 172/74 93 L 11/16/17 04:59 11/16/17 04:59 11/16/17 04:59 11/16/17 04:59 11/16/17 04:59 - General no distress, obese - Eyes PERRL, normal ocular movement, no icteric - ENT Patient is without distress. Head is in the cephalic face is symmetric. There is no abnormal movements. The patient has a cerumen impaction on the left but no wax on the right. Nose is patent. Mouth and throat no oral lesions are noted. Neck is unremarkable. normal pinna, normal nares, normal mucosa, decreased hearing - Neck no masses, no bruits, trachea midline, no lymphadectomy, no venous distension - Respiratory normal expansion, normal respiratory effort, clear to percussion - Integumentary no rash - Musculoskeletal other (Unable to assess ear posterior because the patient is bedridden because of her dizziness) - Psychiatric oriented to time, oriented to person, oriented to place, speech is normal, memory intact Results - Labs 11/20/17 08:56 11/20/17 08:56 Abnormal Lab Results - Last 24 Hours (Table) 11/20/17 11/20/17 Range/Units 08:56 08:56 MCV 101.0 H (80.0-100.0) fL MCHC 30.9 L (31.0-37.0) g/dL Glucose 102 H (74-99) mg/dL Diabetes panel 11/20/17 Range/Units 08:56 Sodium 141 (137-145) mmol/L Potassium 4.9 (3.5-5.1) mmol/L Chloride 106 (98-107) mmol/L Carbon Dioxide 29 (22-30) mmol/L BUN 15 (7-17) mg/dL Creatinine 0.77 (0.52-1.04) mg/dL Glucose 102 H (74-99) mg/dL Calcium 9.0 (8.4-10.2) mg/dL Calcium panel 11/20/17 Range/Units 08:56 Calcium 9.0 (8.4-10.2) mg/dL Pituitary panel 11/20/17 Range/Units 08:56 Sodium 141 (137-145) mmol/L Potassium 4.9 (3.5-5.1) mmol/L Chloride 106 (98-107) mmol/L Carbon Dioxide 29 (22-30) mmol/L BUN 15 (7-17) mg/dL Creatinine 0.77 (0.52-1.04) mg/dL Glucose 102 H (74-99) mg/dL Calcium 9.0 (8.4-10.2) mg/dL Adrenal panel 11/20/17 Range/Units 08:56 Sodium 141 (137-145) mmol/L Potassium 4.9 (3.5-5.1) mmol/L Chloride 106 (98-107) mmol/L Carbon Dioxide 29 (22-30) mmol/L BUN 15 (7-17) mg/dL Creatinine 0.77 (0.52-1.04) mg/dL Glucose 102 H (74-99) mg/dL Calcium 9.0 (8.4-10.2) mg/dL Assessment and Plan (1) Impacted cerumen of left ear Current Visit: Yes Status: Acute Code(s): H61.22 - IMPACTED CERUMEN, LEFT EAR SNOMED Code(s): 43089197 (2) Vestibular neuritis Current Visit: Yes Status: Acute Code(s): H81.20 - VESTIBULAR NEURONITIS, UNSPECIFIED EAR SNOMED Code(s): 393160680 Plan: this patient has had 4 days of persistent dizziness. If this is not secondary to her neurologic etiology most likely etiology is vestibular neuronitis. I'm unable to do a complete neuro-otologic examination on the patient because she is to return just to cooperate. She tells me that she can walk but she is too dizzy to walk and that she can move her feet and legs. I did review the results of the MRI scan and I did not see a dedicated studying to the cerebellopontine angles. We may want to repeat that study and get views of the cerebellopontine angle to rule out an acoustic neuroma. Currently think we can provide her with that her vertiginous control to medical therapy. I've added Xanax and a Transderm scopolamine patch. The use of promethazine as another option. I would like to try her on steroids but she tells me that her blood sugars do not respond well to steroid therapy. Therefore we will not be proceeding forward with steroid therapy per her request and her past history of unstable blood sugars. If her dizziness is persistent and electronystagmogram would be recommended. I will defer further treatment to neurology at this time. She and follow-up with me as needed on outpatient basis. Thank you Time with Patient: Greater than 30
--- NOTE | 2017-11-20 16:44 | P.PN ---
Subjective Progress Note Date: 11/20/17 Progress note being dictated for Dr. Ramey. Interval history: This is a 62-year-old female admitted with syncope, possible acute TIA with pituitary tumor, dizziness, and multiple other medical issues. Evaluated by ENT, neurology with recommendations noted. OP electronystagmogram being discussed if dizziness persists. Comparison of prior MRI with current, pending as per neurology. Continues to complain of dizziness, gait dysfunction. Currently being evaluated by physical therapy for potential subacute rehab. Afebrile. Denies chest pain, palpitations or increasing shortness of breath. Objective - Vital Signs Vital signs: Vital Signs Temp 98.1 F 11/20/17 14:45 Pulse 80 11/20/17 14:45 Resp 16 11/20/17 14:45 BP 111/65 11/20/17 14:45 Pulse Ox 94 L 11/20/17 14:45 Intake & Output 11/19/17 11/20/17 11/20/17 18:59 06:59 18:59 Intake Total 1160 650 Output Total 2 Balance 1158 650 Weight 97.5 kg Intake: Oral 1160 650 Output: Urine 2 Other: Voiding Method Toilet Toilet # Voids 2 2 - Exam PHYSICAL EXAM: VITAL SIGNS: As above GENERAL: Sitting up in bed, no acute distress HEENT: Conjunctivae normal. eyes normal. Oral mucosa moist NECK: No JVD. No thyroid enlargement. No LNs CARDIOVASCULAR: S1, S2 muffled. No murmur RESPIRATION: Breath sounds diminished in the bases. No rhonchi or crackles. No wheezing ABDOMEN: Soft, nontender . No guarding. no masses palpable.Bowel sounds heard. LEGS: No edema. no swelling PSYCHIATRY: Alert and oriented -3, mood and affect normal. NERVOUS SYSTEM: Cranial N 2-12 grossly normal. Moves all 4 limbs. Diffuse weakness No focal deficits. - Labs CBC & Chem 7: 11/20/17 08:56 11/20/17 08:56 Labs: Abnormal Lab Results - Last 24 Hours (Table) 11/20/17 11/20/17 Range/Units 08:56 08:56 MCV 101.0 H (80.0-100.0) fL MCHC 30.9 L (31.0-37.0) g/dL Glucose 102 H (74-99) mg/dL Assessment and Plan Assessment: 1. Dizziness, possible BPV, ruling out TIA 2. 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 COPD-not acute 4. Chronic hypoxic respiratory failure, on home O2 5. Morbid obesity, BMI 46.5 6. Anxiety, panic disorder Plan: Continue current medication regime ,monitoring and symptomatic treatment. Prior MRI records been obtained for neurology to compare/Possible neuropsych evaluation. Recommendations of ENT for further outpatient workup if persistent symptoms, noted. Case management arranging follow-up appointment with [facility] neurosurgeon and assist patient with obtaining transportation. Discharge planning in progress for tomorrow pending clearance from neurology. Prognosis guarded given multiple complex medical issues. Further recommendations to follow. The impression and plan of care has been dictated as directed. : I performed a history and examination of this patient, discussed the same with the dictator. I agree with the dictator's note ,documented as a scribe. Any additional findings or plans will be noted.
[2017-11-20] MEDS: ALPRAZolam 0.25 MG TAB PO SCH ×2 (17:21→21:39)
[2017-11-20] MEDS: ATORVASTATIN 20 MG TAB PO SCH (21:39)
[2017-11-20] MEDS: busPIRone HCl 10 MG TAB PO SCH (22:25)
[2017-11-21] MEDS: DOCUSATE 100 MG CAP PO SCH ×4 (00:26→23:36)
[2017-11-21] MEDS: MECLIZINE 12.5 MG TAB PO SCH ×5 (00:26→23:34)
[2017-11-21] MEDS: HEPARIN SODIUM,PORCINE 5,000 UNIT/ML 1 ML VIAL SQ SCH ×4 (00:28→23:35)
[2017-11-21] MEDS: SODIUM CHLORIDE 0.9% 1,000 ML IV SCH (05:23)
[2017-11-21] MEDS: VENLAFAXINE HCL ER 150 MG CAP PO SCH (08:20)
[2017-11-21] MEDS: CHOLECALCIFEROL 1,000 UNIT TAB PO SCH (08:21)
[2017-11-21] MEDS: ASPIRIN 81 MG PO SCH (08:21)
[2017-11-21] MEDS: busPIRone HCl 10 MG TAB PO SCH ×3 (08:21→21:38)
[2017-11-21] MEDS: FAMOTIDINE 20 MG TAB PO SCH ×2 (08:21→21:38)
[2017-11-21] MEDS: LISINOPRIL 10 MG TAB PO SCH (08:21)
[2017-11-21] MEDS: ALPRAZolam 0.25 MG TAB PO SCH ×3 (08:21→21:38)
--- NOTE | 2017-11-21 17:06 | P.PN ---
Subjective Progress Note Date: 11/21/17 Progress note being dictated for Dr. Ramey. Interval history: This is a 62-year-old female admitted with syncope, possible acute TIA with pituitary tumor, dizziness, and multiple other medical issues. Evaluated by ENT, neurology with recommendations noted. OP electronystagmogram being discussed if dizziness persists. Comparison of prior MRI with current, pending as per neurology. Continues to complain of dizziness, gait dysfunction. Currently being evaluated by physical therapy for potential subacute rehab. Afebrile. Denies chest pain, palpitations or increasing shortness of breath. 11/21/2017 complains of vertigo with activity, currently being evaluated by physical therapy. Agreeable to subacute rehab at discharge. Neurosurgeon visit at [facility] has been arranged, discussed importance of follow-up; patient states she will be compliant with follow-up and that her daughter will drive her. Good diet intake, no nausea vomiting or diarrhea. Denies chest pain , palpitations or increased shortness of breath. Afebrile Objective - Vital Signs Vital signs: Vital Signs Temp 98.0 F 11/21/17 14:29 Pulse 64 11/21/17 14:29 Resp 16 11/21/17 14:29 BP 130/76 11/21/17 14:29 Pulse Ox 98 11/21/17 14:29 Intake & Output 11/20/17 11/21/17 11/21/17 18:59 06:59 18:59 Intake Total 650 Output Total 100 Balance 650 -100 Intake: Oral 650 Output: Urine 100 Other: # Voids 2 2 1 # Bowel Movements 1 - Exam PHYSICAL EXAM: VITAL SIGNS: As above GENERAL: Sitting up in bed, no acute distress HEENT: Conjunctivae normal. eyes normal. Oral mucosa moist NECK: No JVD. No thyroid enlargement. No LNs CARDIOVASCULAR: S1, S2 muffled. No murmur, no rubs, no gallop RESPIRATION: Breath sounds diminished in the bases. No rhonchi , crackles, wheezing ABDOMEN: Soft, nontender . No guarding. no masses palpable.Bowel sounds heard. LEGS: No edema. no swelling PSYCHIATRY: Alert and oriented -3, mood and affect normal. NERVOUS SYSTEM: Cranial N 2-12 grossly normal. Moves all 4 limbs. Diffuse weakness No focal deficits. - Labs CBC & Chem 7: 11/20/17 08:56 11/20/17 08:56 Assessment and Plan Assessment: 1. Dizziness, possible BPV, ruling out TIA 2. 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 COPD-not acute 4. Chronic hypoxic respiratory failure, on home O2 5. Morbid obesity, BMI 46.5 6. Anxiety, panic disorder Plan: Continue current medication regime ,monitoring and symptomatic treatment. PT/OT. Discharge planning in progress for tomorrow pending clearance from neurology. Possible subacute rehab. As mentioned above importance of follow- up with neurosurgeon at [facility]. Prognosis guarded given multiple complex medical issues. Further recommendations to follow. The impression and plan of care has been dictated as directed. : I performed a history and examination of this patient, discussed the same with the dictator. I agree with the dictator's note ,documented as a scribe. Any additional findings or plans will be noted.
--- NOTE | 2017-11-21 20:23 | P.PN ---
Subjective Progress Note Date: 11/21/17 The patient is a 62-year-old woman who presented to the hospital with acute vertigo and pituitary tumor . The patient continues to experience dizziness. She describes it as a spinning sensation with associated nausea. She she has been able to walk with her walker she has been started on Xanax which helped a little She is able to eat and there is no vomiting. Her dizziness is worse when she turns her head to the left. Patient has a long-standing history of pituitary tumor. Arrangements have been made for her to follow up with neurosurgery [facility] as an outpatient next week. The patient denies any other associated symptoms with the dizziness such as headache or visual changes. The patient has no new complaints. She is waiting to go to subacute rehab Objective - Vital Signs Vital signs: Vital Signs Temp 98.0 F 11/21/17 14:29 Pulse 64 11/21/17 14:29 Resp 16 11/21/17 14:29 BP 130/76 11/21/17 14:29 Pulse Ox 98 11/21/17 14:29 Intake & Output 11/21/17 11/21/17 11/22/17 06:59 18:59 06:59 Output Total 100 Balance -100 Output: Urine 100 Other: # Voids 2 0 # Bowel Movements 1 - Constitutional General appearance: Present: obese - EENT Eyes: Present: PERRLA ENT: Present: hearing grossly normal - Respiratory Respiratory: bilateral: CTA - Cardiovascular Rhythm: regular - Neurologic Neurologic: Present: CNII-XII intact - Musculoskeletal Musculoskeletal: Present: strength equal bilaterally - Psychiatric Psychiatric: Present: A&O x's 3 - Labs CBC & Chem 7: 11/20/17 08:56 11/20/17 08:56 Assessment and Plan (1) Vertigo Current Visit: Yes Status: Acute SNOMED Code(s): 121913976 (2) History of pituitary tumor Current Visit: Yes Status: Acute SNOMED Code(s): 54689272983924 Plan: The patient is a 62-year-old woman with history of pituitary tumor presented to the hospital with vertigo. She has a nonfocal neurologic examination.. She has no other neurologic complaints besides vertigo. She denies any visual changes, headache, focal weakness or numbness. She did have an MRA of the neck which showed no significant vascular stenosis. This vertigo is positional. She is able to walk with the walker for short distance. ENT has evaluated the patient. Recommend continue supportive care. Patient will follow up with neurosurgery at [facility].
[2017-11-21] MEDS: ATORVASTATIN 20 MG TAB PO SCH (21:38)
[2017-11-22] MEDS: SODIUM CHLORIDE 0.9% 1,000 ML IV SCH (04:46)
[2017-11-22] MEDS: MECLIZINE 12.5 MG TAB PO SCH ×2 (05:56→11:39)
[2017-11-22] MEDS: DOCUSATE 100 MG CAP PO SCH ×2 (07:29→15:16)
[2017-11-22] MEDS: HEPARIN SODIUM,PORCINE 5,000 UNIT/ML 1 ML VIAL SQ SCH ×2 (07:34→15:16)
[2017-11-22] MEDS: CHOLECALCIFEROL 1,000 UNIT TAB PO SCH (07:34)
[2017-11-22] MEDS: LISINOPRIL 10 MG TAB PO SCH (07:35)
[2017-11-22] MEDS: ALPRAZolam 0.25 MG TAB PO SCH ×2 (07:35→15:15)
[2017-11-22] MEDS: FAMOTIDINE 20 MG TAB PO SCH (07:35)
[2017-11-22] MEDS: ASPIRIN 81 MG PO SCH (07:35)
[2017-11-22] MEDS: busPIRone HCl 10 MG TAB PO SCH ×2 (07:35→15:15)
[2017-11-22] MEDS: VENLAFAXINE HCL ER 150 MG CAP PO SCH (08:03)
--- NOTE | 2017-11-22 14:56 | P.DS ---
Providers Date of admission: 11/19/17 10:50 Expected date of discharge: 11/22/17 Attending physician: Pat Ramey Consults: 11/16/17 06:26 Consult Physician Routine Consulting Provider: Umm Burns Consult Reason/Comments: Vertigo Do you want consulting provider notified?: Yes 11/18/17 15:21 Consult Physician Routine Consulting Provider: Tete Santos Consult Reason/Comments: Pituitary Tumor Do you want consulting provider notified?: Yes 11/20/17 14:02 Consult Physician Routine Consulting Provider: Jaleel Reveles Consult Reason/Comments: vertigo and dizziness Do you want consulting provider notified?: Yes Primary care physician: Jose Sheikh Hospital Course: Final Diagnoses: 1. Dizziness, possible BPV, ruling out TIA 2. 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 COPD-not acute 4. Chronic hypoxic respiratory failure, on home O2 5. Morbid obesity, BMI 46.5 6. Anxiety, panic disorder Hospital course:This is a 62-year-old female admitted with syncope, possible acute TIA with pituitary tumor, dizziness, and multiple other medical issues. Evaluated by ENT, neurology with recommendations noted. OP electronystagmogram being discussed if dizziness persists. Comparison of prior MRI with current, pending as per neurology.Evaluated by PT/OT, complains of vertigo with activity. Agreeable to subacute rehab at discharge. Neurosurgeon visit at [facility] has been arranged, discussed importance of follow-up; patient states she will be compliant with follow-up and that her daughter will drive her. Significant clinical improvement. Cleared by all consults for discharge. Patient is being discharged to [facility] subacute rehab in a stable condition with guarded prognosis. EXAM: GENERAL: Alert and oriented 3, no acute distress CARDIOVASCULAR: S1, S2 muffled. No murmur, no rubs, no gallop RESPIRATION: Breath sounds diminished in the bases. No rhonchi , crackles, wheezing ABDOMEN: Soft, nontender . No guarding. Bowel sounds heard. NERVOUS SYSTEM: No focal deficits. The impression and plan of care has been dictated as directed. : I performed a history and examination of this patient, discussed the same with the dictator. I agree with the dictator's note ,documented as a scribe. Any additional findings or plans will be noted. Time taken: 35 minutes Patient Condition at Discharge: Stable Plan - Discharge Summary New Discharge Prescriptions: New Acetaminophen Tab [Tylenol] 650 mg PO Q4HR PRN tab PRN Reason: Fever And/ Or Pain Docusate [Colace] 100 mg PO Q8HR cap Famotidine [Pepcid] 20 mg PO BID tab Ipratropium-Albuterol Nebulize [Duoneb 0.5 mg-3 mg/3 ml Soln] 3 ml INHALATION RT-QID PRN ampul.neb PRN Reason: Shortness Of Breath Or Wheezing Meclizine [Antivert] 12.5 mg PO Q8H PRN #1 tab PRN Reason: Vertigo Continue busPIRone HCl [Buspar] 5 mg PO TID Venlafaxine HCl ER [Effexor XR] 150 mg PO DAILY Cholecalciferol [Vitamin D3] 5,000 unit PO DAILY Aspirin EC [Ecotrin Low Dose] 81 mg PO DAILY Simvastatin 40 mg PO HS Lisinopril 30 mg PO DAILY LORazepam [Ativan] 0.5 mg PO QAM #3 tab Discharge Medication List Aspirin EC [Ecotrin Low Dose] 81 mg PO DAILY 11/16/17 [History] Cholecalciferol [Vitamin D3] 5,000 unit PO DAILY 11/16/17 [History] Lisinopril 30 mg PO DAILY 11/16/17 [History] Simvastatin 40 mg PO HS 11/16/17 [History] Venlafaxine HCl ER [Effexor XR] 150 mg PO DAILY 11/16/17 [History] busPIRone HCl [Buspar] 5 mg PO TID 11/16/17 [History] Acetaminophen Tab [Tylenol] 650 mg PO Q4HR PRN tab 11/22/17 [Rx] Docusate [Colace] 100 mg PO Q8HR cap 11/22/17 [Rx] Famotidine [Pepcid] 20 mg PO BID tab 11/22/17 [Rx] Ipratropium-Albuterol Nebulize [Duoneb 0.5 mg-3 mg/3 ml Soln] 3 ml INHALATION RT -QID PRN ampul.neb 11/22/17 [Rx] LORazepam [Ativan] 0.5 mg PO QAM #3 tab 11/22/17 [Rx] Meclizine [Antivert] 12.5 mg PO Q8H PRN #1 tab 11/22/17 [Rx] Follow up Appointment(s)/Referral(s): Dr. Cheo Clarke Neurosurgery [Other] - 11/27/17 [facility]Home Care [NON-STAFF] - 1-2 Days Umm Burns MD [STAFF PHYSICIAN] - 2 Weeks Jaleel Reveles DO [Doctor of Osteopathic Medicine] - 1 Week Jose Sheikh MD [Primary Care Provider] - 3 Days Activity/Diet/Wound Care/Special Instructions: Neurosurgeon appointment with Dr Cheo Clarke on November 27 at 1:15 in the afternoon at the [facility] at [address] on the 11th floor. Fax number is [phone], phone number is [phone]. Your medical record number with [facility] is [id number]. Must bring CD with previous MRI images to appointment.
[2017-11-22 15:02] VITALS: BP 113/73; PULSE 69; RESP 16; TEMP 97.7
[2017-11-23 10:21] LABS: Lyme IgG/IgM 0.1 Index
--- NOTE | 2017-11-26 08:19 | CDI ---
Last Revision, February 2017 Documentation Clarification Form Date: 11/26/17 From: Lisa Kyle Phone: If you have a question regarding this query, please contact Shi Kelley at [phone] between 8am and 5pm. Admit Date: 11/19/2017 10:50:00 AM Patient Name: Kate Lerner Visit Number: [id number] Discharge Date: 11/26/17 ATTENTION: The Clinical Documentation Specialists (CDI) and [facility] Coding Staff appreciate your assistance in clarifying documentation. Please respond to the clarification below the line at the bottom and electronically sign. The CDI & [facility] Coding staff will review the response and follow-up if needed. Please note: Queries are made part of the Legal Health Record. If you have any questions, please contact the author of this message via ITS. Pat Johnson MD Conflicting documentation has been found in the medical record. BPV ruling out TIA is documented in your discharge summary and 11/19 - 11/[address] Reveles documents vestibular neuritis. History/Risk Factors: Patient was admitted with severe vertigo. Clinical Indicators: Dizziness, difficulty walking Treatment: PO Xanax, PO Antivert and Scopolamine patch. Consult: Neurology documented vertigo. In your opinion what is the most clinically appropriate diagnosis for this patient? BPPV TIA Vestibular Neuritis Other explanation of clinical findings Unable to determine (no explanation for clinical findings) Vestibular Neuritis MTDD
== END 2017-11-22 16:34 | DRG 155 ==
LOC: EC 04:55 → 3OBS 06:33 → OBSVTOIN 11-19 10:50 → MERGE 11-19 10:50 → 4MS4W 11-19 23:56
PROVIDERS: ADMIT Hospitalist; ATTEND Hospitalist
DX: H93.3X9 Disorders of unspecified acoustic nerve (principal); J96.11 Chronic respiratory failure with hypoxia; Z68.42 Body mass index [BMI] 45.0-49.9, adult; H91.90 Unspecified hearing loss, unspecified ear; D49.7 Neoplasm of unspecified behavior of endocrine glands and other parts of nervous system; R73.03 Prediabetes; E66.01 Morbid (severe) obesity due to excess calories; E78.5 Hyperlipidemia, unspecified; F41.0 Panic disorder [episodic paroxysmal anxiety]; H61.22 Impacted cerumen, left ear; I10 Essential (primary) hypertension; J44.9 Chronic obstructive pulmonary disease, unspecified; Z99.81 Dependence on supplemental oxygen; Z87.891 Personal history of nicotine dependence; Z79.82 Long term (current) use of aspirin; Z79.899 Other long term (current) drug therapy; Z90.710 Acquired absence of both cervix and uterus; Z90.49 Acquired absence of other specified parts of digestive tract; Z88.1 Allergy status to other antibiotic agents; Z88.2 Allergy status to sulfonamides; Z88.8 Allergy status to other drugs, medicaments and biological substances
CPT/HCPCS: 70549; 70553; 80048; 80053; 80061; 81001; 84443; 85025; 86618; 93005; 93306; 99285